=== PATIENT | male | born 1985 | race Caucasian/White ===

== ENCOUNTER 2025-05-22 09:06 | Emergency (ER) | payer OTHER, SELFPAY ==
[2025-05-22 09:23] VITALS: BP 125/84; PULSE 81; RESP 18; TEMP 36.2; O2SAT 97; BMI 26.4
--- NOTE | 2025-05-22 10:30 | CRLHL7_ITS ---
For Patients: As a result of the Century Cures Act, medical imaging exams and procedure reports are released immediately into your electronic medical record. You may view this report before your referring provider. If you have questions, please contact your health care provider. INDICATION: Headache, neck pain. TECHNIQUE: CTA head using intravenous contrast with bolus tracking, 3D angiographic rendering using maximum intensity projection (MIP) and images permanently archived. CTA neck using intravenous contrast with bolus tracking, 3D angiographic rendering using maximum intensity projection (MIP) and images permanently archived. FINDINGS: CTA head: There is normal opacification of the intracranial vasculature. There is no large vessel occlusion or significant intracranial stenosis. No aneurysm is identified. CTA neck: There is no significant carotid artery stenosis or dissection. There is no significant vertebral artery stenosis or dissection. IMPRESSION: Unremarkable head CTA. Unremarkable neck CTA. Please note that all CT scans at this facility use dose modulation, iterative reconstruction, and/or weight-based dosing when appropriate to reduce radiation dose to as low as reasonably achievable. Dictated by Luis Miguel Holm MD @ 05/22/2025 4:45:59 PM (Electronically Signed)
--- NOTE | 2025-05-22 10:30 | CRLHL7_ITS ---
For Patients: As a result of the Century Cures Act, medical imaging exams and procedure reports are released immediately into your electronic medical record. You may view this report before your referring provider. If you have questions, please contact your health care provider. INDICATION: Trauma with neck pain and headache COMPARISON: None. TECHNIQUE: CT of the cervical spine without contrast. FINDINGS: Alignment: Straightening of the cervical lordosis. Vertebra: No evident acute displaced fracture or traumatic malalignment. Cervical vertebral body height is grossly preserved. There are multilevel degenerative changes characterized by disc height loss, osteophytosis, facet hypertrophy, and end plate degenerative irregularity. There is osseous spinal canal stenosis most conspicuous at C5-6 where it is mild to moderate. There is osseous neural foraminal narrowing most conspicuous at the left C5-6 where it is qqbv-tj-gazicfkq. Paraspinal muscles: Unremarkable noncontrast CT appearance. Additional findings: There is a punctate calcified right-sided tonsillith. IMPRESSION: 1. No evident acute displaced fracture. 2. Vott-qz-llvsxtsv degenerative change of the cervical spine. Please note that all CT scans at this facility use dose modulation, iterative reconstruction, and/or weight-based dosing when appropriate to reduce radiation dose to as low as reasonably achievable. Dictated by Simeon Silva MD @ 05/22/2025 12:30:51 PM (Electronically Signed)
--- NOTE | 2025-05-22 10:30 | CRLHL7_ITS ---
For Patients: As a result of the Century Cures Act, medical imaging exams and procedure reports are released immediately into your electronic medical record. You may view this report before your referring provider. If you have questions, please contact your health care provider. INDICATION: Trauma with neck pain and headache COMPARISON: None. TECHNIQUE: CT of the head without contrast. FINDINGS: Brain, ventricles, and extra-axial spaces: No acute intracranial hemorrhage. Jaquez-white differentiation is grossly preserved. Size of the ventricles and sulci appears to be commensurate with age. Minimal intracranial vascular calcification. Bones: No acute osseous findings. There is a medium-sized polyp versus mucous retention cyst in the right maxillary sinus. There is scattered mild paranasal sinus mucosal thickening. Visualized mastoid air cells are clear. IMPRESSION: No acute intracranial noncontrast CT findings. Please note that all CT scans at this facility use dose modulation, iterative reconstruction, and/or weight-based dosing when appropriate to reduce radiation dose to as low as reasonably achievable. Dictated by Simeon Silva MD @ 05/22/2025 12:25:14 PM (Electronically Signed)
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
[2025-05-22] MEDS: MORPHINE 4 MG/ML INJ IVP (10:40)
[2025-05-22] MEDS: 0.9 % SODIUM CHLORIDE 500 ML 500 ML IV (10:41)
[2025-05-22 10:45] VITALS: O2SAT 96
--- OUTSIDE RECORDS SUMMARY | 2025-05-22 11:06 | XMS_ITS | Encounter Summary ---
Author Organization [facility] Address [address] [place] [address] Care Team Providers Care Shaft Sinker Name Role Phone Kaiden Grijalva Primary Care Provider [phone] Sindi Dubose NP Primary Care Provider [phone] Encounter Details Date Type Department Care Team (Latest Contact Info) Description 07/12/2008 Scanned Document EXTERNAL Scan, Clinical [address] [facility] [place] [address] Social History Tobacco Use Types Packs/Day Years Used Date Smoking Tobacco: Never Assessed Sex and Gender Information Value Date Recorded Sex Assigned at Not on file 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 Gender Identity Not on file Sexual Orientation Not on file documented as of this encounter Miscellaneous Notes * Op Note - Stu Clinical - 07/12/2008 12:00 AM CST TIE MACHINE OPERATOR AUTOMATIC documented in this encounter Plan of Treatment Not on file documented as of this encounter Visit Diagnoses Not on filedocumented in this encounter Care Teams Shaft Sinker Relationship Specialty Start Date End Date Kaiden Grijalva FNP [address] [place], [address] PCP - General Nurse Practitioner 11/29/18 02/26/25 Sindi Dubose NP [address] [facility] [address] [facility] [place] [address] PCP - General Nurse Practitioner 02/27/25 documented as of this encounter
--- OUTSIDE RECORDS SUMMARY | 2025-05-22 11:06 | XMS_ITS | Encounter Summary ---
Author Organization [facility] Address [address] [place], [address] Care Team Providers Care Black Top Spreader Machine Operator Name Role Phone Kaiden Grijalva MODE Primary Care Provider [phone] Sindi Dubose NP Primary Care Provider [phone] Encounter Details Date Type Department Care Team (Late st Contact Info) Description 07/13/2008 Historical Encounter [facility] Surgery [address] [place], [address] Maulik Mccurdy MD [address] [place] [address] [place] [phone] Social History Tobacco Use Types Packs/Day Years Used Date Smoking Tobacco: Never Assessed Sex and Gender Information Value Date Recorded Sex Assigned at Not on file 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 Received in formalin labeled [place], right inguinal hernia sac is a 2 .3 x 1.6 x 1.6 cm portion of membranofatty tissue. Cut sections are similar and free of distinct gross and/or palpable abnormality. TS1. tt/ lb/ied DIAGNOSIS A. RIGHT INGUINAL HERNIA SAC HERNIA SAC, EXCISED ELECTRONICALLY SIGNED BY: JORDAN KOLB M.D. (Signed in IC-Chart by Maulik Mccurdy MD on 2008-07-21 16:23:00) documented in this encounter Plan of Treatment Not on file documented as of this encounter Visit Diagnoses Not on filedocumented in this encounter Care Teams Black Top Spreader Machine Operator Relationship Specialty Start Date End Date Kaiden Grijalva FNP [address] [place], [address] PCP - General Nurse Practitioner 11/29/18 02/26/25 Sindi Dubose NP [address] [facility] [place] [address] PCP - General Nurse Practitioner 02/27/25 documented as of this encounter
--- OUTSIDE RECORDS SUMMARY | 2025-05-22 11:06 | XMS_ITS | Encounter Summary ---
Author Organization [facility] Address [address] [place] [address] Care Team Providers Care Retirement Plan Specialist Name Role Phone RudiKaiden Bj COELLO Primary Care Provider [phone] Sindi Dubose NP Primary Care Provider [phone] Encounter Details Date Type Department Care Team (Late st Contact Info) Description 12/13/2008 Historical Encounter [facility] [place] [address] [facility] 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 FINDINGS: There is no fracture or dislocation. The joint spaces are unremarkable. IMPRESSION: No acute process. Jorge Mooney MD TR: JAX Conf #: [id number] Dictation ID: [id number] cc: (Signed in IC-Chart by Jaylan Mooney MD on Dec 15 2008 3:47PM) (Reviewed in IC-Chart by VANESA Fernandez on 12/15/2008 3:54:20 PM) (Reviewed in IC-Chart by Parmjit Sumner MD on 12/15/2008 4:21:45 PM) documented in this encounter Plan of Treatment Not on file documented as of this encounter Visit Diagnoses Not on filedocumented in this encounter Care Teams Retirement Plan Specialist Relationship Specialty Start Date End Date Kaiden Grijalva FNP [address] [place] [phone] PCP - General Nurse Practitioner 11/29/18 02/26/25 Sindi Dubose NP [address] [facility] [place] [address] PCP - General Nurse Practitioner 02/27/25 documented as of this encounter
--- OUTSIDE RECORDS SUMMARY | 2025-05-22 11:06 | XMS_ITS | Encounter Summary ---
Author Organization [facility] Address [address] [place], [address] Care Team Providers Care Um Nurse Name Role Phone Kaiden Grijalva Bj COELLO Primary Care Provider [phone] Sindi Dubose NP Primary Care Provider [phone] Encounter Details Date Type Department Care Team (Late st Contact Info) Description 05/03/2008 Historical Encounter [facility] Surgery [address] [facility] [place] [address] Kyle Mccurdy MD [address] [place] [address] [place] [phone] Social History Tobacco Use Types Packs/Day Years Used Date Smoking Tobacco: Never Assessed Sex and Gender Information Value Date Recorded Sex Assigned at Not on file 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 He has no significant past medical or past surgical history. REVIEW OF SYSTEMS: Noncontributory. OBJECTIVE: General: He is a well-developed, well-nourished white male who is in no apparent distress. HEENT: Normocephalic. Atraumatic. Lungs: Clear. Heart: Regular rate and rhythm. Abdomen: Soft. exam: He has an easily demonstrable right inguinal hernia that feels like a direct hernia that is easily reducible. The left side is free of any hernias. ASSESSMENT: Right inguinal hernia. PLAN: Right inguinal hernia repair. Kyle Mccurdy MD TR: TORIBIO/TRICIA Conf #: [id number] Dictation ID: [id number] cc: (Signed in IC-Chart by Kyle Mccurdy MD on 2008-05-08 18:40:21) documented in this encounter Plan of Treatment Not on file documented as of this encounter Visit Diagnoses Not on filedocumented in this encounter Care Teams Um Nurse Relationship Specialty Start Date End Date Kaiden Grijalva FNP [address] [place] [address] PCP - General Nurse Practitioner 11/29/18 02/26/25 Sindi Dubose NP [address] [facility] [place] [address] PCP - General Nurse Practitioner 02/27/25 documented as of this encounter
--- OUTSIDE RECORDS SUMMARY | 2025-05-22 11:06 | XMS_ITS | Encounter Summary ---
Author Organization [facility] a [facility] Address [address] [place], [address] Care Team Providers Care Rn Dermatology Name Role Phone Kaiden Grijalva Bj COELLO Primary Care Provider [phone] Sindi Dubose NP Primary Care Provider [phone] Encounter Details Date Type Department Care Team (Late st Contact Info) Description 07/20/2008 Historical Encounter [facility] Surgery [address] [facility] [address] Kyle Mccurdy MD [address] [place] [address] [place] [phone] Social History Tobacco Use Types Packs/Day Years Used Date Smoking Tobacco: Never Assessed Sex and Gender Information Value Date Recorded Sex Assigned at Not on file 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 The patient is having a fair amount of pain and some swelling and bruising but otherwise is doing fine. OBJECTIVE: By physical exam, his wound looks great. There is no evidence of any recurrent hernia. No evidence of any infection. His left side is free of any hernias. Both testicles are well descended. He does have some ecchymosis around his scrotum too. ASSESSMENT: Status post right inguinal hernia repair. PLAN: See me back in four weeks for recheck. Kyle Mccurdy MD TR: TORIBIO/TRICIA Conf #: [id number] Dictation ID: [id number] cc: (Signed in IC-Chart by Kyle Mccurdy MD on 2008-07-21 16:15:02) documented in this encounter Plan of Treatment Not on file documented as of this encounter Visit Diagnoses Not on filedocumented in this encounter Care Teams Rn Dermatology Relationship Specialty Start Date End Date Kaiden Grijalva FNP [address] [place] [phone] PCP - General Nurse Practitioner 11/29/18 02/26/25 Sindi Dubose NP [address] [facility] [place] [address] PCP - General Nurse Practitioner 02/27/25 documented as of this encounter
--- OUTSIDE RECORDS SUMMARY | 2025-05-22 11:06 | XMS_ITS | Encounter Summary ---
Author Organization [facility] a [facility] Address [address] [place], [address] Care Team Providers Care Subscription Agent Name Role Phone Kaiden Grijalva MODE Primary Care Provider Sindi Dubose NP Primary Care Provider Encounter Details Date Type Department Care Team (Late st Contact Info) Description 07/13/2008 Historical Encounter [facility] [address] [facility] [address] Kyle Mccurdy MD [address] [place] [address] [place] [phone] Social History Tobacco Use Types Packs/Day Years Used Date Smoking Tobacco: Never Assessed Sex and Gender Information Value Date Recorded Sex Assigned at Not on file 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 PREOPERATIVE DIAGNOSIS: Right inguinal hernia. POSTOPERATIVE DIAGNOSIS: Same. OPERATIVE PROCEDURE: The patient was taken to the operating room and placed on the table in a comfortable supine position. After general endotracheal anesthesia was obtained, the right groin was prepped and draped in the usual sterile fashion. Next, I made a small right groin oblique incision and carried it down through the tissues all the way to the external oblique. That was incised through the external ring and I then cleaned off the undersurface of the external oblique and gained access around the spermatic cord. I then dissected the ilioinguinal nerve out of harm's way, after which I then dissected on the anterior medial aspect of the cord and found the indirect hernia sac. It was from the rest of the spermatic cord structures and I then suture ligated the sac all the way near the internal ring. I then amputated the sac above the ligature and allowed the rest of it to retract into the abdominal cavity. At this point, I then dilated up the internal ring and placed PHS medium mesh in the wound with the posterior onlay sitting beneath the inguinal floor on top of the retroperitoneum and the anterior onlay sitting anterior to the inguinal floor. The anterior onlay was sutured medial most to the pubic tubercle, laterally to the iliopubic tract, and medially to the transversus aponeurotic arch and posteriorly to the internal oblique. The mesh was actually split and sutured back to itself to the iliopubic tract as well. The wound was then injected with .25% Marcaine with epinephrine and then irrigated, after which I then reapproximated the external oblique with a running 3-0 Vicryl suture, Jose Elias's with a running 3-0 Vicryl, and the skin with a 4-0 Monocryl subcuticular suture. The wound was sealed with Dermabond. Estimated blood loss in the case was less than 10 cc. He went to recovery in stable condition. Kyle Mccurdy M.D. TR: ELMA Conf #: [id number] Dictation ID: [id number] cc: (Signed in -Chart by Kyle Mccurdy MD on 2008-07-21 16:23:04) documented in this encounter Plan of Treatment Not on file documented as of this encounter Visit Diagnoses Not on filedocumented in this encounter Care Teams Subscription Agent Relationship Specialty Start Date End Date Kaiden Grijalva FNP [address] [place], [phone] PCP - General Nurse Practitioner 11/29/18 02/26/25 Sindi Dubose NP [address] [facility] [place], [address] PCP - General Nurse Practitioner 02/27/25 documented as of this encounter
--- OUTSIDE RECORDS SUMMARY | 2025-05-22 11:06 | XMS_ITS | Encounter Summary ---
Author Organization [facility] a [facility] Address [address] [place], [address] Care Team Providers Care Inspector Scales Name Role Phone Kaiden Grijalva MODE Primary Care Provider [phone] Sindi Dubose NP Primary Care Provider [phone] Encounter Details Date Type Department Care Team (Late st Contact Info) Description 07/24/2008 Historical Encounter [facility] Surgery [address] [facility] [address] Kyle Mccurdy MD [address] [place] [address] [place] [phone] Social History Tobacco Use Types Packs/Day Years Used Date Smoking Tobacco: Never Assessed Sex and Gender Information Value Date Recorded Sex Assigned at Not on file 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 Gender Identity Not on file Sexual Orientation Not on file documented as of this encounter Miscellaneous Notes * Patient Forms - Kyle Mccurdy MD - 07/24/2008 10:05 AM CST - CERTIFICATE OF INCAPACITY - Arnoldo Dumont has been under my care from 07/12/2008 to 07/24/2008 and will be able to return on 07/24/2008 under the following conditions: - [ ] - No Restrictions - [X] - Light Duty - [ ] - Restricted Duty - Comments: - Provider: - Kyle Mccurdy MD - Date: 07/24/2008 - Entered By: ars documented in this encounter Plan of Treatment Not on file documented as of this encounter Visit Diagnoses Not on filedocumented in this encounter Care Teams Inspector Scales Relationship Specialty Start Date End Date Kaiden Grijalva, MODE [address] [place], [phone] PCP - General Nurse Practitioner 11/29/18 02/26/25 Sindi Dubose NP [address] [facility] [place], [address] PCP - General Nurse Practitioner 02/27/25 documented as of this encounter
--- OUTSIDE RECORDS SUMMARY | 2025-05-22 11:07 | XMS_ITS | Encounter Summary ---
Author Organization [facility] Address [address] [place] [address] Care Team Providers Care Vp Care Management Name Role Phone Kaiden Grijalva Primary Care Provider [phone] Sindi Dubose NP Primary Care Provider [phone] Encounter Details Date Type Department Care Team (Latest Contact Info) Description 04/14/2012 Scanned Document EXTERNAL Stu Clinical [address] [facility] [place] [address] Social History Tobacco Use Types Packs/Day Years Used Date Smoking Tobacco: Never Alcohol Use Standard Drinks/Week Comments Not Asked 0 (1 standard drink = 0.6 oz pur e alcohol) Sex and Gender Information Value Date Recorded Sex Assigned at Not on file 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 Gender Identity Not on file Sexual Orientation Not on file documented as of this encounter Progress Notes * Stu Clinical - 04/14/2012 2:01 PM CDT documented in this encounter Plan of Treatment Not on file documented as of this encounter Visit Diagnoses Not on filedocumented in this encounter Care Teams Vp Care Management Relationship Specialty Start Date End Date Kaiden Grijalva FNP [address] [place], [phone] PCP - General Nurse Practitioner 11/29/18 02/26/25 Sindi Dubose NP [address] [facility] [place] [address] PCP - General Nurse Practitioner 02/27/25 documented as of this encounter
--- OUTSIDE RECORDS SUMMARY | 2025-05-22 11:07 | XMS_ITS | Encounter Summary ---
Author Organization [facility] Address [address] [place] [address] Care Team Providers Care Web Developer Programmer Name Role Phone Kaiden Grijalva Primary Care Provider [phone] Sindi Dubose NP Primary Care Provider [phone] Encounter Details Date Type Department Care Team (Late st Contact Info) Description 04/11/2008 Historical Encounter HISTORICAL Provider, MD Jose [address] [facility] [place] [address] Social History Tobacco Use Types Packs/Day Years Used Date Smoking Tobacco: Never Assessed Sex and Gender Information Value Date Recorded Sex Assigned at Not on file 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
--- OUTSIDE RECORDS SUMMARY | 2025-05-22 11:07 | XMS_ITS | Encounter Summary ---
Author Organization [facility] Address [address] [place] [address], [place] [address] Care Team Providers Care Crown Perforator Operator Name Role Phone Kaiden Grijalva Bj COELLO Primary Care Provider [phone] Sindi Dubose NP Primary Care Provider [phone] Encounter Details Date Type Department Care Team (Late st Contact Info) Description 01/15/2006 Historical Encounter [facility] Surgery [address] [place] [address], [place] [address] Kyle Mccurdy MD [address] [place] [address] [place] [phone] Social History Tobacco Use Types Packs/Day Years Used Date Smoking Tobacco: Never Assessed Sex and Gender Information Value Date Recorded Sex Assigned at Not on file 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 Dumont is a healthy 20 year old white male who has a right inguinal hernia that needs repairing. REVIEW OF SYSTEMS: Negative. PAST HISTORY: SURGERY: Negative. MEDICAL: Negative. ALLERGIES: None. SOCIAL HISTORY: He drinks alcohol occasionally. PHYSICAL EXAMINATION: GENERAL: He is a well-developed, well-nourished, white male who looks his stated age and is healthy appearing. HEENT: Normocephalic, atraumatic. NECK: Supple without adenopathy. LUNGS: Clear to auscultation. HEART: Regular rate and rhythm. ABDOMEN: Soft and benign and nontender. : He has an easily demonstrable right inguinal hernia that is easily reducible. Left side is free of any hernias. Testicles are well-descended on both sides. EXT: No clubbing, cyanosis, or edema. IMPRESSION: Right inguinal hernia. PLAN: Right inguinal hernia repair. Kyle Mccurdy M.D./at documented in this encounter Plan of Treatment Not on file documented as of this encounter Visit Diagnoses Not on filedocumented in this encounter Care Teams Crown Perforator Operator Relationship Specialty Start Date End Date Kaiden Grijalva FNP [address] [place] [address] PCP - General Nurse Practitioner 11/29/18 02/26/25 Sindi Dubose NP [address] [facility] [place] [address] PCP - General Nurse Practitioner 02/27/25 documented as of this encounter
--- OUTSIDE RECORDS SUMMARY | 2025-05-22 11:07 | XMS_ITS | Encounter Summary ---
Author Organization [facility] Address [address] [place] [address] Care Team Providers Care Food Services Director Name Role Phone Kaiden Grijalva ON AIR ANNOUNCER Primary Care Provider [phone] Sindi Dubose NP Primary Care Provider [phone] Encounter Details Date Type Department Care Team (Late st Contact Info) Description 01/01/2006 Historical Encounter [facility] [address] [facility] [place] [address] Parmjit Sumner MD [address] [facility] [place] [phone] Social History Tobacco Use Types Packs/Day Years Used Date Smoking Tobacco: Never Assessed Sex and Gender Information Value Date Recorded Sex Assigned at Not on file 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 It started in 1999 after picking up a heavy object. Now he has a knot there that is intermittent. It recently has been bothering him a lot more especially if he tries to do any lifting. OBJECTIVE: VITAL SIGNS: Temperature is 97.8. Pulse is 64. Blood pressure is 130/80. LOWER EXTREMITIES: Examination of his right inguinal area shows that there are no testicular masses, no scrotal masses but his inguinal ring seems enlarged. When he coughs or strains there is a definite bulge. ASSESSMENT: Right inguinal hernia. PLAN: We are going to refer to Surgery for definitive care. Parmjit Sumner MD TR: DANUTA Conf #: [id number] Dictation ID: [id number] cc: (Signed in IC-Chart by Parmjit Sunmer MD on 2006-01-02 07:47:27) documented in this encounter Plan of Treatment Not on file documented as of this encounter Visit Diagnoses Not on filedocumented in this encounter Care Teams Food Services Director Relationship Specialty Start Date End Date Kaiden Grijalva FNP [address] [place] [address] PCP - General Nurse Practitioner 11/29/18 02/26/25 Sindi Dubose NP [address] [facility] [place] [address] PCP - General Nurse Practitioner 02/27/25 documented as of this encounter
--- OUTSIDE RECORDS SUMMARY | 2025-05-22 11:07 | XMS_ITS | Clinical Summary ---
Author Organization [facility] Address [address] [place] [address] Care Team Providers Care Administration Manager Name Role Phone Sindi Dubose NP Primary Care Provider [phone] Allergies No known active allergies Medications dicyclomine (BENTYL) 20 MG tablet Take 1 tablet (20 mg total) by mouth 3 (three) times daily as needed (abdominal cramping). 20 tablet 11/05/2018 Active testosterone cypionate (DEPOTESTOTERONE CYPIONATE) 200 MG/ML injection 1 mL 08/15/2022 Act amadeo Active Problems Problem Noted Date Diagnosed Date Weakness of both lower extremities 03/23/2018 Tonsillitis 06/11/2017 Acute bilateral low back pain without sciatica 1 Pain of right forearm 08/21/2016 TED (obstructive sleep apnea) 08/15/2014 Sinusitis Encounters Date Type Department Care Team Description 02/27/2025 9:52 AM CDT - 02/27/2025 10:27 AM CDT Emergency [facility] Emergency Services [address] [facility] [address], [phone] Mona Mock NP Wells, Maria, FNP Foreign body/splinter, skin (Primary Dx) Discharge Disposition: 01. Home 02/27/2025 Travel from Last 3 Months Family History Medical History Relation Comments Arthritis Maternal Grandfather Arthritis Maternal Grandmother Diabetes Maternal Uncle Early Maternal Uncle Arthritis Paternal Grandfather Arthritis Paternal Grandmother Relation Status Comments Father Alive Maternal Grandfather Maternal Grandmother Maternal Uncle Mother Alive Paternal Grandfather Paternal Grandmother Social History Tobacco Use Types Packs/Day Years Used Date Smoking Tobacco: Never Smokeless Tobacco: Current Snuff Tobacco Cessation:Ready to Q uit: Not Asked; Counseling Given: Not Answered Alcohol Use Standard Drinks/Week Comments Yes 0 (1 standard drink = 0.6 oz pur e alcohol) occasionally Sex and Gender Information Value Date Recorded Sex Assigned at Not on file 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 Sex Male 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 Gender Identity Not on file Sexual Orientation Not on file Last Filed Vital Signs Vital Sign Reading Time Taken Comments Blood Pressure 137/90 02/27/2025 9:47 AM CDT Pulse 99 02/27/2025 9:47 AM CDT Temperature 36.7 C (98 F) 02/27/2025 9:47 AM CDT Respiratory Rate 20 02/27/2025 9:47 AM CDT Oxygen Saturation 95% 02/27/2025 9:47 AM CDT Inhaled Oxygen Concentration - - Weight 88.5 kg (195 lb) 02/27/2025 9:47 AM CDT Height 182.9 cm (6') 02/27/2025 9:47 AM CDT Body Mass Index 26.45 02/27/2025 9:47 AM CDT Plan of Treatment Health Maintenance Due Date Last Done Comments ADULT TETANUS VACCINE (1) 1995 INFLUENZA VACCINE 03/31/2025 Meningococcal ACWY Aged Out No longer eligible based on patient's age to complete this topic Meningococcal B Aged Out No longer el igible based on patient's age to complete this topic Pneumococcal Vaccine Aged Out No long er eligible based on patient's age to complete this topic Insurance [place] [employer] [place] [id number] * Guarantor: ANDRES [employer] Account Type Relation to Patient Date of Phone Billing Address Workers Comp Employer [address] [place] [address] [facility] [employer] * Guarantor: ELMIRA [employer] PAYABLE Account Type Relation to Patient Date of Phone Billing Address Occ Med Employer [address] [employer] [address] [address] [place] [address] Care Teams Administration Manager Relationship Specialty Start Date End Date Sindi Dubose NP [address] [place] [address] PCP - General Nurse Practitioner 02/27/25
--- OUTSIDE RECORDS SUMMARY | 2025-05-22 11:07 | XMS_ITS | Encounter Summary ---
Author Organization [facility] a [facility] Address [address] [place] [address] Care Team Providers Care Plant Operator Name Role Phone Kaiden Grijalva MODE Primary Care Provider [phone] Sindi Dubose NP Primary Care Provider Encounter Details Date Type Department Care Team (Late st Contact Info) Description 09/05/2005 Historical Encounter [facility] [address] 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 SUBJECTIVE The patient comes in for suture removal. The wound looks great. Sutures are removed without difficulty. No sign of infection. ASSESSMENT 1. Laceration, now completely healed. PLAN 1. Follow up p.r.n. /Parmjit Sumner M.D. /liss (Signed in IC-Chart by Parmjit Sumner MD on 2005-09-08 07:09:23) documented in this encounter Plan of Treatment Not on file documented as of this encounter Visit Diagnoses Not on filedocumented in this encounter Care Teams Plant Operator Relationship Specialty Start Date End Date Kaiden Grijalva FNP [address] [place], [phone] PCP - General Nurse Practitioner 11/29/18 02/26/25 Sindi Dubose NP [address] [facility] [place], [address] PCP - General Nurse Practitioner 02/27/25 documented as of this encounter
--- OUTSIDE RECORDS SUMMARY | 2025-05-22 11:07 | XMS_ITS | Patient Health Record ---
Author Organization [facility] Address [address] [facility] [place], [address] Care Team Providers Care Vendor Management Associate Name Role Phone AMAN CISCO Primary Care Provider VERONA OWUSU Unavailable [phone] Genoveva Reed Unavailable [phone] Allergies No Known Allergies Results Component Value Reference Range Notes CBC Reviewed date:10/27/2024 04:13:28 PM Interpretation: Performing Lab: Notes/Report: Reference Lab COMPLETE BLOOD COUNT WBC 6.2 4.5 - 11.0 K/uL RBC 5.58 4.69 - 6.13 M/uL HEMOGLOBIN 18.4 13.5 - 18.1 g/dL HEMATOCRIT 53.5 43.5 - 53.7 % MCV 96 80 - 102 fL MCH 32.9 22.5 - 34.5 pg MCHC 34 31 - 37 g/dL RDW 12.6 11.6 - 14.8 % PLATELETS 252 142 - 424 K/uL MPV 7.9 7.0 - 11.5 fL %LYMPH 31 20 - 65 % %MONO 11 2 - 15 % %NEUT 53 30 - 75 % %EOS 4 0 - 5 % %BASO 1 0 - 3 % #LYMPH 1.9 1.2 - 3.4 K/uL #MONO 0.7 0.1 - 0.6 K/uL #NEUT 3.3 1.4 - 9.8 K/uL #EOS 0.3 0.0 - 0.3 K/uL #BASO 0.1 0.0 - 0.1 K/uL MANUAL DIFF NOT INDICATED RBC MORPH NOT INDICATED BASIC METABOLIC PROFILE Reviewed date:10/27/2024 04:13:41 PM Interpretation: Performing Lab: Notes/Report: Reference Lab BASIC METABOLI C PANEL SODIUM 137 136 - 145 mEq/L POTASSIUM 4.7 3.5 - 5.1 mEq/L CHLORIDE 101 98 - 107 mEq/L CO2 31 21 - 32 mEq/L GLUCOSE 104 70 - 110 mg/dL CALCIUM 9.0 8.5 - 10.1 mg/dL ANION GAP 5 5 - 15 BUN 22 7 - 18 mg/dL CREATININE 1.0 0.6 - 1.3 mg/dL BUN/CREAT 22 6 - 25 OSMOLALITY 297 285 - 295 mOsm/K AGE 40 NON-AA GFR 88 AFR AMER GFR 106 Units = ml/min/1.73m2 >90 Normal or Elevated GFR 60-89 Mildly Bepressed GFR 30-59 Moderately Depressed GFR 15-29 Severely Depressed GFR <15 Kidney Failure This MDRD GFR calculation is NOT valid for patients <20 years of age TESTOSTERONE TOTAL Reviewed date:10/28/2024 03:20:36 PM Interpretation:Low Performing Lab: Notes/Report: Testosterone 106 300-890 ng/dL [place] [employer] [address] [place] [address] Reverberatory Furnace Supervisor: Bhartah Castrejon M.D. CLIA# [id number] UNLESS OTHERWISE INDICATED, ALL TESTING PERFORMED AT: [employer] [address] CLIA NUMBER [id number] MEDICAL DIRECTOR OF RETAIL OPERATIONS, BHARATH CASTREJON M.D. Reason For Referral Reason the [facility] Diagnosis 1 Hypogonadism in male (E29.1) Referral Organization [facility] Referring Provider First Name VERONA Referring Provider Last Name UMER Referring Provider Speciality Family Med icine Referred Provider Specialty Other Medica l Care General Notes Kaila Elliott 04:39:08 PM >Left a VM with [facility] at [phone] to give PT a call back at [phone] to schedule an appt for 6 weeks out. Referral Priority Routine Medications Medication SIG (Take, Route, Frequency, Duration) Notes Start Date End Date Status Naproxen 500 MG 1 tablet with food a s needed Orally Twice a day for joint pain; Duration: 30 day(s) 08/08/2022 Not-Taking Cyclobenzaprine HCl 10 MG 1 tablet Orall y every 8 hours only as needed for muscle spasms; Duration: 30 day(s) 08/15/2022 Not-Taking Testosterone Cypionate 200 MG/ML 1 mL Intramuscular every week; Duration: 30 days 08/15/2022 Active predniSONE 10 MG 1 tablet Orally twic e a day; Duration: 7 days 08/08/2022 Not-Taking Social History Tobacco Use: Social History Observation Description Date Details (start date - stop date) Never Smoker NA - NA Tobacco use other than smoking: Question Answer Notes Are you an other tobacco user? No Tobacco Control (Standard) Question Answer Notes Tobacco use: Nonsmoker AUDIT-C (Standard) Question Answer Notes Did you have a drink containing alcohol in the p ast year? No Points 0 Interpretation Negative Problems Problem Type SNOMED Code ICD Code Onset Dates Problem Status W/U Status Risk Notes Problem Anxiety (06151695) Anxiety (F41.9) Active confirmed Problem Male hypogonadism (04796626) Hypogonadism in male (E29.1) Active confirmed Problem Ageusia (44982016) Ageusia (R43.2) Active confirmed Vital Signs Heart Rate 90 /min 10/25/2024 Temperature 98.2 degrees Fahrenheit 10/25/2024 Oximetry 94 % 10/25/2024 Blood pressure diastolic 80 mm Hg 10/25/2024 Height 72 in 10/25/2024 Blood pressure systolic 118 mm Hg 10/25/2024 Weight 197.2 lbs 10/25/2024 BMI 26.74 kg/m2 10/25/2024 Encounters Encounter Location Date Provider Diagnosis [facility] [address] [place] [address] 10/25/2024 VERONA OWUSU Hypogonadism in male E29.1 [facility] [address] [place] [address] 10/24/2024 VERONA OWUSU Hypogonadism in male E29.1 [facility] [address] [place] [address] 04/28/2025 VERONA OWUSU [facility] [address] [place] [address] 05/05/2025 Genoveva Reed Hypogonadism in male E29.1 Assessments Encounter Date Diagnosis (ICD Code) Assessment Notes Treatment Notes Treatment Clinical Notes Section Notes 10/24/2024 Hypogonadism in male (ICD-10 - E29.1) 10/25/2024 Hypogonadism in male (ICD-10 - E29.1) RTC 6 months Will call pending results 05/05/2025 Hypogonadism in male (ICD-10 - E29.1) Plan Of Treatment No Information Medications Administered Medication Instructions Date of Administration Dosage Notes Ketorolac Toradol 60mg 2ml 06/03/2017 2 mL Patient tolerate d well. Ketorolac Toradol 60mg 2ml 09/03/2022 60 mg LOT # [id number] Tolerated well Medical (General) History Surgical History Surgery Date(Month/Year)
--- OUTSIDE RECORDS SUMMARY | 2025-05-22 11:07 | XMS_ITS | Encounter Summary ---
Author Organization [facility] Address [address], [address] Care Team Providers Care Editor Farm Journal Name Role Phone Kaiden Grijalva HIGH FREQUENCY MILL OPERATOR Primary Care Provider Sindi Dubose NP Primary Care Provider Encounter Details Date Type Department Care Team (Late st Contact Info) Description 08/18/2005 Historical Encounter [facility] [address] [facility] [place] [address] Parmjit Sumner MD [address] [facility] [place] [phone] Social History Tobacco Use Types Packs/Day Years Used Date Smoking Tobacco: Never Assessed Sex and Gender Information Value Date Recorded Sex Assigned at Not on file 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 SUBJECTIVE The patient hit his right foot with an axe suffering a 3 cm laceration across the dorsum of the foot. OBJECTIVE VITAL SIGNS: Temperature is 98.2. Pulse is 72. Blood pressure is 120/70. LOWER EXTREMITIES: The right foot shows a 3 cm laceration as described above. Range of motion of the toes and dorsiflexion of the toes are intact. Capillary refill and sensation of the toes are intact. LABORATORY AND X-RAY DATA X-ray of the right foot shows no bony fracture. REPAIR NOTE The area was prepped with Betadine. Local anesthesia with 1% Lidocaine was used without Epinephrine. We cleaned the area well and probed it. There was evidence of the tendons but no tendon laceration seen. The wound was then approximated with three sutures of 4-0 Ethilon. He tolerated it very well. ASSESSMENT 3 cm laceration of the foot, now repaired. PLAN 1. Local wound care instructions given. 2. Follow up in two weeks for suture removal. 3. Augmentin 875 b.i.d. for four days. 4. Lortab 5 one to two q.4h. p.r.n. pain. /Parmjit Sumner M.D. /liss (Signed in IC-Chart by Parmjit Sumner MD on 2005-08-18 11:26:58) documented in this encounter Plan of Treatment Not on file documented as of this encounter Visit Diagnoses Not on filedocumented in this encounter Care Teams Editor Farm Journal Relationship Specialty Start Date End Date Kaiden Grijalva, MODE [address] [place] [phone] PCP - General Nurse Practitioner 11/29/18 02/26/25 Sindi Dubose NP [address] [facility] [place] [address] PCP - General Nurse Practitioner 02/27/25 documented as of this encounter
--- OUTSIDE RECORDS SUMMARY | 2025-05-22 11:07 | XMS_ITS | Encounter Summary ---
Author Organization [facility] Address [address] [place] [address] Care Team Providers Care Reimbursement Representative Name Role Phone Kaiden Grijalva COLLECTION ANALYST Primary Care Provider [phone] Sindi Dubose NP Primary Care Provider Encounter Details Date Type Department Care Team (Late st Contact Info) Description 10/08/[address] [facility] [address] [facility] [place] [address] Parmijt Sumner MD [address] [facility] [place] 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 There is a fluctuant, reddened, raised area. We recommended incision and drainage of this. Risk of procedure including bleeding, infection, scarring and damage to underlying structures explained to the patient. Local anesthesia with 1% Lidocaine after the area was prepped with Betadine. An incision was made and the core was removed. ASSESSMENT: Abscess, right hand, now drained. PLAN: 1. Local wound care instructions given. 2. Omnicef 300 mg b.i.d. x5 days. 3. Warm soaks twice a day. 4. Follow up if it does not gradually resolved. Parmjit Sumner MD TR: DANUTA Conf #: [id number] Dictation ID: [id number] cc: (Signed in IC-Chart by Parmjit Sumner MD on 2005-10-09 07:08:54) documented in this encounter Plan of Treatment Not on file documented as of this encounter Visit Diagnoses Not on filedocumented in this encounter Care Teams Reimbursement Representative Relationship Specialty Start Date End Date Kaiden Grijalva FNP [address] [place] [phone] PCP - General Nurse Practitioner 11/29/18 02/26/25 Sindi Dubose NP [address] [facility] [place] [address] PCP - General Nurse Practitioner 02/27/25 documented as of this encounter
--- OUTSIDE RECORDS SUMMARY | 2025-05-22 11:07 | XMS_ITS | Encounter Summary ---
Author Organization [facility] Address [address] [place] [address] Care Team Providers Care Booster Plant Operator Name Role Phone Kaiden Grijalva TIPPING MACHINE OPERATOR Primary Care Provider Sindi Dubose NP Primary Care Provider [phone] Encounter Details Date Type Department Care Team (Late st Contact Info) Description 12/30/2006 Historical Encounter [facility] [address] [facility] [place] [address] Parmjit Sumner MD [address] [facility] [place] [phone] Social History Tobacco Use Types Packs/Day Years Used Date Smoking Tobacco: Never Assessed Sex and Gender Information Value Date Recorded Sex Assigned at Not on file 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 Six years ago we evaluated this and felt like it was bursitis. He cannot remember any reinjury that he has had to his shoulder. It started about three weeks ago without any overuse or injury. He has taken some Tylenol but it did not do much. He is on currently no medication. OBJECTIVE: VITAL SIGNS: Temperature is 97.9. Pulse is 68. Blood pressure is 128/80. UPPER EXTREMITIES: Left shoulder has excellent range of motion but there is a popping sensation at the AC joint. His right shoulder has no popping sensation, and normal range of motion. Left arm has normal partridge farmer and normal radial pulse. ASSESSMENT: Bursitis of the shoulder, probably due to hold AC ligament injury. PLAN: 1. Celebrex 200 twice a day for a week. 2. Use heat with a heating pad 30 minutes twice a day. 3. Follow up p.r.n. Parmjit Sumner MD TR: DANUTA Conf #: [id number] Dictation ID: [id number] cc: (Signed in IC-Chart by Parmjit Sumner MD on 2006-12-30 14:53:56) documented in this encounter Plan of Treatment Not on file documented as of this encounter Visit Diagnoses Not on filedocumented in this encounter Care Teams Booster Plant Operator Relationship Specialty Start Date End Date Kaiden Grijalva FNP [address] [place] [phone] PCP - General Nurse Practitioner 11/29/18 02/26/25 Sindi Dubose NP [address] [facility] [place] [address] PCP - General Nurse Practitioner 02/27/25 documented as of this encounter
--- OUTSIDE RECORDS SUMMARY | 2025-05-22 11:07 | XMS_ITS | Encounter Summary ---
Author Organization [facility] Address [address] [place], [address] Care Team Providers Care Global Director Air And Climate Change Name Role Phone Kaiden Grijalva PLATE SETTER Primary Care Provider Sindi Dubose NP Primary Care Provider [phone] Encounter Details Date Type Department Care Team (Late st Contact Info) Description 01/19/2006 Historical Encounter [facility] Surgery [address] [facility] [address] Kyle Mccurdy MD [address] [place] [address] [place] [phone] Social History Tobacco Use Types Packs/Day Years Used Date Smoking Tobacco: Never Assessed Sex and Gender Information Value Date Recorded Sex Assigned at Not on file 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 He has known he has had it for probably a couple years, but it is starting to bother him and he would like to have it repaired. It is not causing any obstructive type symptoms at all. He has no past medical or surgical history. OBJECTIVE: By physical exam, generally, he is a well-developed, well-nourished white male in no apparent distress. HEENT - Normocephalic, atraumatic. Lungs clear. Abdomen soft. exam, he has a small right inguinal hernia that does not prolapse through the external ring into the scrotum at all. Left side is free of any hernias. He has bilateral descended testicles. ASSESSMENT: Right inguinal hernia. PLAN: Plans for right inguinal hernia repair. Kyle Mccurdy MD TR: HEAVEN Conf #: [id number] Dictation ID: [id number] cc: documented in this encounter Plan of Treatment Not on file documented as of this encounter Visit Diagnoses Not on filedocumented in this encounter Care Teams Global Director Air And Climate Change Relationship Specialty Start Date End Date Kaiden Grijalva FNP [address] [place] [address] PCP - General Nurse Practitioner 11/29/18 02/26/25 Sindi Dubose NP [address] [facility] [place] [address] PCP - General Nurse Practitioner 02/27/25 documented as of this encounter
--- OUTSIDE RECORDS SUMMARY | 2025-05-22 11:07 | XMS_ITS | Encounter Summary ---
Author Organization [facility] Address [address] [place] [address] Care Team Providers Care University Intern Name Role Phone Kaiden Grijalva MAILROOM MANAGER Primary Care Provider [phone] Sindi Dubose NP Primary Care Provider Encounter Details Date Type Department Care Team (Late st Contact Info) Description 08/12/[address] 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 MD: Parmjit Sumner M.D. - [place] [facility] PROCEDURE: RIGHT FOOT HISTORY: Open wound of foot, cut on top of foot RIGHT FOOT - THREE VIEWS: There is no evidence of fracture or foreign body. No abnormalities are otherwise seen. IMPRESSION: Normal. Zarina Retana M.D./deacon Dictation Date: 08/14/2005 Electrical Systems Engineer Date: 08/14/2005 Electrical Systems Engineer Time: 7:34 P (Signed in IC-Chart by Shine Retana MD on Aug 15 2005 10:53AM) (Signed in IC-Chart by Parmjit Sumner MD on Aug 15 2005 10:53AM) documented in this encounter Plan of Treatment Not on file documented as of this encounter Visit Diagnoses Not on filedocumented in this encounter Care Teams University Intern Relationship Specialty Start Date End Date Kaiden Grijalva FNP [address] [place] [phone] PCP - General Nurse Practitioner 11/29/18 02/26/25 Sindi Dubose NP [address] [facility] [place] [address] PCP - General Nurse Practitioner 02/27/25 documented as of this encounter
--- OUTSIDE RECORDS SUMMARY | 2025-05-22 11:07 | XMS_ITS | Encounter Summary ---
Author Organization [facility] Address [address] [place], [address] Care Team Providers Care Talent Agent Name Role Phone Kaiden Grijalva Bj COELLO Primary Care Provider Sindi Dubose NP Primary Care Provider [phone] Encounter Details Date Type Department Care Team (Late st Contact Info) Description 05/03/2008 Historical Encounter [facility] [address] [facility] [address] Kyle Mccurdy MD [address] [place] [address] [place] [phone] Social History Tobacco Use Types Packs/Day Years Used Date Smoking Tobacco: Never Assessed Sex and Gender Information Value Date Recorded Sex Assigned at Not on file 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 Actually, a little over two years ago, I scheduled him for a right inguinal hernia repair. The patient did not have it done then but now he has insurance and wants to go ahead and have it fixed. He states that it has not really gotten much bigger since that time, but it is bothering him a little and wants to have it repaired. He has got no significant past medical or past surgical history. OBJECTIVE: GENERAL: Well-developed, well-nourished white male who is in no apparent distress. HEENT: Normocephalic. Atraumatic. Lungs: Clear. Heart: Regular rate and rhythm. Abdomen: Soft and benign and nontender. exam: He has easily demonstrable right inguinal hernia that feels more like a direct hernia and does not prolapse through the external ring. Both of the testicles are well descended. His left side is free of any hernias. ASSESSMENT: Right inguinal hernia. PLAN: Right inguinal hernia repair. I have explained the risks, benefits, and possible complications of that procedure to the patient, which include bleeding, infection, recurrence of the hernia, wound complications, nerve damage, , stroke, LA, pulmonary embolism, deep venous thrombosis, testicular loss, testicular atrophy, recurrence of the hernia. He understands all of this and agrees to proceed. Kyle Mccurdy MD TR: SPG/LTTyler Conf #: [id number] Dictation ID: [id number] cc: (Signed in IC-Chart by Kyle Mccurdy MD on 2008-05-08 18:40:25) documented in this encounter Plan of Treatment Not on file documented as of this encounter Visit Diagnoses Not on filedocumented in this encounter Care Teams Talent Agent Relationship Specialty Start Date End Date Kaiden Grijalva FNP [address] [place] [address] PCP - General Nurse Practitioner 11/29/18 02/26/25 Sindi Dubose NP [address] [facility] [place], [address] PCP - General Nurse Practitioner 02/27/25 documented as of this encounter
--- OUTSIDE RECORDS SUMMARY | 2025-05-22 11:07 | XMS_ITS | Encounter Summary ---
Author Organization [facility] Address [address] [place], [address] Care Team Providers Care Airplane Patrol Pilot Name Role Phone Kaiden Grijalva LIQUEFACTION AND REGASIFICATION HELPER Primary Care Provider iSndi Dubose NP Primary Care Provider [phone] Encounter Details Date Type Department Care Team (Late st Contact Info) Description 05/02/2008 Historical Encounter [facility] Surgery [address] [facility] [address] Maulik Bourgeois MD [address] [place] [address] [place] [address] Social History Tobacco Use Types Packs/Day Years Used Date Smoking Tobacco: Never Assessed Sex and Gender Information Value Date Recorded Sex Assigned at Not on file 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 The heart and pulmonary vascularity are normal. The lungs are clear. The mediastinum and bony thorax are unremarkable. IMPRESSION Normal chest. Kulwinder Flannery MD TR: RSY/MJ Conf #: [id number] Dictation ID: [id number] cc: (Signed in IC-Chart by Noam Calzada MD on May 02 2008 3:33PM) (Reviewed in IC-Chart by Maulik Bourgeois MD on 05/02/2008 4:41:07 PM) documented in this encounter Plan of Treatment Not on file documented as of this encounter Visit Diagnoses Not on filedocumented in this encounter Care Teams Airplane Patrol Pilot Relationship Specialty Start Date End Date Kaiden Grijalva, MODE [address] [place], [address] PCP - General Nurse Practitioner 11/29/18 02/26/25 Sindi Dubose NP [address] [facility] [place], [address] PCP - General Nurse Practitioner 02/27/25 documented as of this encounter
--- OUTSIDE RECORDS SUMMARY | 2025-05-22 11:07 | XMS_ITS | Encounter Summary ---
Author Organization [facility] Address [address] [place] [address] Care Team Providers Care Community Life Director Name Role Phone Kaiden Grijalva Primary Care Provider [phone] Sindi Dubose NP Primary Care Provider Encounter Details Date Type Department Care Team (Late st Contact Info) Description 02/24/2005 Historical Encounter [facility] 215 [facility] [place] [address] Rudolph Lopez FNP 215 [facility] 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 Ede states he thought it was some kind of poison at first. It is very tender. He has been getting some drainage out of it. It is automatic bandsaw tender. It is actually starting to spread some. OBJECTIVE: Well-developed, well-nourished white male. No acute distress noted at this time. Temperature not taken. Pulse 68. Blood pressure 120/80. SKIN: Left wrist noted to have several lesions present, which are raised, red and slightly tender. I see no drainage at this time. ASSESSMENT: Cellulitis left wrist, questionable etiology. PLAN: 1. Open one of the pustules up and get some purulent material out and do a culture and sensitivity. 2. Put him on Bactroban, apply with Q-Tip up inside of nose once a day. 3. Bactrim DS one b.i.d. 4. Advised patient will call her with the results of the culture and any change to treatment. /MODE Henderson /devora (Signed in IC-Chart by VANESA Fernandez on 2005-02-24 10:33:00) documented in this encounter Plan of Treatment Not on file documented as of this encounter Visit Diagnoses Not on filedocumented in this encounter Care Teams Community Life Director Relationship Specialty Start Date End Date Kaiden Grijalva FNP [address] [place], [phone] PCP - General Nurse Practitioner 11/29/18 02/26/25 Sindi Dubose NP [address] [facility] [place], [address] PCP - General Nurse Practitioner 02/27/25 documented as of this encounter
--- OUTSIDE RECORDS SUMMARY | 2025-05-22 11:07 | XMS_ITS | Encounter Summary ---
Author Organization [facility] Address [address] [place] [address] Care Team Providers Care Tool Room Attendant Name Role Phone Rudi Kaiden Bj COELLO Primary Care Provider [phone] Sindi Dubose NP Primary Care Provider [phone] Encounter Details Date Type Department Care Team (Late st Contact Info) Description 04/13/[address] [facility] 215 [facility] [place] [address] Rudolph Lopez FNP 215 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 Apparently the patient was helping roll a trailer when a piece of sharp metal stuck in his boot lacerating his foot. He has had a tetanus shot within about the last five years. OBJECTIVE: General: Well-developed, well-nourished male. No acute distress noted at this time. Extremities: Left foot noted to have a mild laceration to the arch of the foot approximately 1 inch in length just down to the fatty tissue. He does have good range of motion. He does have sensation all digits. IMPRESSION: Laceration, left foot. PLAN: 1. Have patient sign informed consent. 2. Area cleansed with Betadine. 3. Anesthetized with 1% plain lidocaine. 4. Closed with two 4-0 nylon sutures. 5. Antibiotic cream and dry sterile dressing applied. 6. Advised patient to keep this clean and dry and keep antibiotic cream on it. 7. Return to clinic in seven to ten days for suture removal. Marquis Lopez NP TR: PHILL Conf #: [id number] Dictation ID: [id number] cc: (Signed in IC-Chart by VANESA Fernandez on 2008-04-13 14:13:11) documented in this encounter Plan of Treatment Not on file documented as of this encounter Visit Diagnoses Not on filedocumented in this encounter Care Teams Tool Room Attendant Relationship Specialty Start Date End Date Kaiden Grijalva FNP [address] [place], [address] PCP - General Nurse Practitioner 11/29/18 02/26/25 Sindi Dubose NP [address] [facility] [place] [address] PCP - General Nurse Practitioner 02/27/25 documented as of this encounter
--- OUTSIDE RECORDS SUMMARY | 2025-05-22 11:07 | XMS_ITS | Encounter Summary ---
Author Organization [facility] Address [address] [place] [address] Care Team Providers Care Turbine Subassembler Name Role Phone Kaiden Grijalva Primary Care Provider [phone] Sindi Dubose NP Primary Care Provider [phone] Encounter Details Date Type Department Care Team (Latest Contact Info) Description 02/01/2015 Scanned Document EXTERNAL Scan, Clinical [address] [facility] [place] [address] Social History Tobacco Use Types Packs/Day Years Used Date Smoking Tobacco: Former Smokeless Tobacco: Current Snuff Alcohol Use Standard Drinks/Week Comments Yes 0 (1 standard drink = 0.6 oz pur e alcohol) Sex and Gender Information Value Date Recorded Sex Assigned at Not on file Legal Sex Male 6:29 AM GATHERING MACHINE SETTER Gender Identity Not on file Sexual Orientation Not on file documented as of this encounter Plan of Treatment Not on file documented as of this encounter Visit Diagnoses Not on filedocumented in this encounter Care Teams Turbine Subassembler Relationship Specialty Start Date End Date Kaiden Grijalva FNP [address] [place], [phone] PCP - General Nurse Practitioner 11/29/18 02/26/25 Sindi Dubose NP [address] [facility] [place] [address] PCP - General Nurse Practitioner 02/27/25 documented as of this encounter
--- OUTSIDE RECORDS SUMMARY | 2025-05-22 11:07 | XMS_ITS | Encounter Summary ---
Author Organization [facility] Address [address] [place] [address] Care Team Providers Care Metal Tile Setter Name Role Phone Kaiden Grijalva Primary Care Provider [phone] Sindi Dubose NP Primary Care Provider [phone] Encounter Details Date Type Department Care Team (Late st Contact Info) Description 12/28/2006 Historical Encounter HISTORICAL Provider, MD Jose [address] [facility] [place] [address] Social History Tobacco Use Types Packs/Day Years Used Date Smoking Tobacco: Never Assessed Sex and Gender Information Value Date Recorded Sex Assigned at Not on file Legal Sex Male 6:29 AM CHAPTER RELATIONS ADMINISTRATOR Gender Identity Not on file Sexual Orientation Not on file documented as of this encounter Plan of Treatment Not on file documented as of this encounter Visit Diagnoses Not on filedocumented in this encounter Care Teams Metal Tile Setter Relationship Specialty Start Date End Date Kaiden Grijalva FNP [address] [place], [address] PCP - General Nurse Practitioner 11/29/18 02/26/25 Sindi Dubose NP [address] [facility] [place] [address] PCP - General Nurse Practitioner 02/27/25 documented as of this encounter
--- OUTSIDE RECORDS SUMMARY | 2025-05-22 11:07 | XMS_ITS | Encounter Summary ---
Author Organization [facility] Address [address] [place] [address] Care Team Providers Care Gun Profiler Name Role Phone Kaiden Grijalva Primary Care Provider [phone] Sindi Dubose NP Primary Care Provider [phone] Encounter Details Date Type Department Care Team (Latest Contact Info) Description 04/19/2012 Scanned Document EXTERNAL Stu Clinical [address] [facility] [address] Social History Tobacco Use Types Packs/Day Years Used Date Smoking Tobacco: Never Alcohol Use Standard Drinks/Week Comments Not Asked 0 (1 standard drink = 0.6 oz pur e alcohol) Sex and Gender Information Value Date Recorded Sex Assigned at Not on file 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 Gender Identity Not on file Sexual Orientation Not on file documented as of this encounter Progress Notes * Ayana Peraza - 04/19/2012 4:29 PM CDT documented in this encounter Plan of Treatment Not on file documented as of this encounter Visit Diagnoses Not on filedocumented in this encounter Care Teams Gun Profiler Relationship Specialty Start Date End Date Kaiden Grijalva FNP [address] [place], [phone] PCP - General Nurse Practitioner 11/29/18 02/26/25 Sindi Dubose NP [address] [facility] [place] [address] PCP - General Nurse Practitioner 02/27/25 documented as of this encounter
--- OUTSIDE RECORDS SUMMARY | 2025-05-22 11:07 | XMS_ITS | Encounter Summary ---
Author Organization [facility] Address [address] [place] [address] Care Team Providers Care Spinning Frame Cleaner Name Role Phone Kaiden Grijalva Primary Care Provider [phone] Sindi Dubose NP Primary Care Provider [phone] Encounter Details Date Type Department Care Team (Late st Contact Info) Description 12/28/2006 Historical Encounter HISTORICAL Provider, MD Jose [address] 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
--- OUTSIDE RECORDS SUMMARY | 2025-05-22 11:07 | XMS_ITS | Encounter Summary ---
Author Organization [facility] Address [address] [place] [address] Care Team Providers Care Strainer Tender Name Role Phone Kiaden Grijalva TENNIS RACKET REPAIRER Primary Care Provider Sindi Dubose NP Primary Care Provider [phone] Encounter Details Date Type Department Care Team (Late st Contact Info) Description 11/17/2005 Historical Encounter [facility] 215 [facility] [address] Parmjit Sumner MD 215 [facility] [place] [address] Social History Tobacco Use Types Packs/Day Years Used Date Smoking Tobacco: Never Assessed Sex and Gender Information Value Date Recorded Sex Assigned at Not on file 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 Symptoms started last night and became worse today. Cough has been productive. No fever present. OBJECTIVE: VITAL SIGNS: Temperature is 98.7. Pulse is 92. Blood pressure is 110/80. HEENT: Throat is red and irritated. TMs are leiva. NECK: Supple. LUNGS: Clear. ASSESSMENT: Sinusitis/bronchitis. PLAN: 1. Zithromax Z-Arturo. 2. Endal HD one to two teaspoons q.6h. p.r.n. cough, use only at night. Sedation precautions given. 3. Follow-up if symptoms do not improve. Parmjit Sumner MD TR: DANUTA Conf #: [id number] Dictation ID: [id number] cc: (Signed in IC-Chart by Parmjit Sumner MD on 2005-11-17 09:49:00) documented in this encounter Plan of Treatment Not on file documented as of this encounter Visit Diagnoses Not on filedocumented in this encounter Care Teams Strainer Tender Relationship Specialty Start Date End Date Kaiden Grijalva, MODE [address] [place] [address] PCP - General Nurse Practitioner 11/29/18 02/26/25 Sindi Dubose NP [address] [facility] [place] [address] PCP - General Nurse Practitioner 02/27/25 documented as of this encounter
--- OUTSIDE RECORDS SUMMARY | 2025-05-22 11:07 | XMS_ITS | Encounter Summary ---
Author Organization [facility] Address [address] [place], [address] Care Team Providers Care Auditing Specialist Name Role Phone Kaiden Grijalva ASSOCIATE SOFTWARE ENGINEER Primary Care Provider [phone] Sindi Dubose NP Primary Care Provider Encounter Details Date Type Department Care Team (Late st Contact Info) Description 03/27/2005 Historical Encounter [facility] [address] [place], [address] Crystal Maynard MD [address] [facility] 11 [facility] [phone] Social History Tobacco Use Types Packs/Day Years Used Date Smoking Tobacco: Never Assessed Sex and Gender Information Value Date Recorded Sex Assigned at Not on file 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 HISTORY OF PRESENT ILLNESS: The patient comes in today with complaints of sore throat that started on and he has had fever for two days and no cough. He has not had any stuffy nose, nausea, vomiting or diarrhea ALLERGIES: No known drug allergies. PHYSICAL EXAMINATION: Vital Signs: Weight is 183 pounds. Temperature is 99.0. Pulse is 72. Blood pressure is 96/60. General: The patient is a well-developed, well-nourished, white male who is alert, oriented and in no acute distress. HEENT: Normocephalic, atraumatic. Pupils are equal, round and reactive to light. Extraocular muscles are intact. Conjunctivae are clear without injection or icterus. Ears show no external lesions. Canals are patent. TMs are shiny and leiva. Nose is without erythema or discharge. Oropharynx is moist and pink with posterior pharyngeal erythema and exudates. Neck: Supple with tender anterior cervical adenopathy. No thyromegaly or masses. Lungs: Clear. Symmetric chest expansion without wheezes, rhonchi or rales. CV: Regular rate and rhythm without murmurs, gallops or rubs. There is no peripheral edema. Peripheral pulses are 2+ dorsalis pedis and radial. IMPRESSION: 1. Pharyngitis. PLAN: 1. We have put him on Ceftin 500 mg one p.o. b.i.d. for 10 days. 2. Viscus Lidocaine 15 cc swish, gargle and spit q.2h. p.r.n. sore throat. 3. Alternate Tylenol and Motrin for fever. 4. Follow up for any worsening signs or symptoms. 5. The patient voices understanding and agreement. /Crystal Maynard M.D. /liss (Signed in IC-Chart by Crystal Maynard MD on 2005-04-15 21:42:58) documented in this encounter Plan of Treatment Not on file documented as of this encounter Visit Diagnoses Not on filedocumented in this encounter Care Teams Auditing Specialist Relationship Specialty Start Date End Date Kaiden Grijalva FNP [address] [place], [address] PCP - General Nurse Practitioner 11/29/18 02/26/25 Sindi Dubose NP [address] [facility] [place] [address] PCP - General Nurse Practitioner 02/27/25 documented as of this encounter
--- OUTSIDE RECORDS SUMMARY | 2025-05-22 11:07 | XMS_ITS | Encounter Summary ---
Author Organization [facility] Address [address] [place] [address] Care Team Providers Care Health And Safety Coordinator Name Role Phone Kaiden Grijalva Bj COELLO Primary Care Provider [phone] Sindi Dubose NP Primary Care Provider [phone] Encounter Details Date Type Department Care Team (Late st Contact Info) Description 04/14/2008 Historical Encounter [facility] 215 [facility] [place] [address] Jacob Snowden DO 215 [facility] [place] [address] Social History Tobacco Use Types Packs/Day Years Used Date Smoking Tobacco: Never Assessed Sex and Gender Information Value Date Recorded Sex Assigned at Not on file 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 Office Visit DATE OF SERVICE: 04/11/2008 PATIENT NAME: SHERRI DUMONT : 1985 He was putting a part in a drum at work approximately one hour ago when he felt sudden pain in the right forearm, claims it hurts to supinate and also to extend the right wrist. No previous injuries. 132/90, pulse 78, respirations 18. I do not see any swelling. He does have a full range of motion and pronation, supination, flexion and extension. There is tenderness over the lateral epicondyle. ASSESSMENT AND PLAN: Strained muscle to the forearm. Ice three times before bed. Mobic 7.5 to 15, daily, #30 Darvocet. Wrote a note for boss for limited right hand over the next 5 days. Jacob Snowden DO TR: YOUSIF Conf #: [id number] Dictation ID: [id number] cc: (Signed in IC-Chart by Jacob Snowden DO on 2008-04-14 15:11:35) documented in this encounter Plan of Treatment Not on file documented as of this encounter Visit Diagnoses Not on filedocumented in this encounter Care Teams Health And Safety Coordinator Relationship Specialty Start Date End Date Kaiden Grijalva FNP [address] [place], [address] PCP - General Nurse Practitioner 11/29/18 02/26/25 Sindi Dubose NP [address] [facility]] [place], [address] PCP - General Nurse Practitioner 02/27/25 documented as of this encounter
--- OUTSIDE RECORDS SUMMARY | 2025-05-22 11:07 | XMS_ITS | Encounter Summary ---
Author Organization [facility] Address [address] [address] Care Team Providers Care Natural Foods Clerk Name Role Phone Kaiden Grijalva Primary Care Provider [phone] Sindi Dubose NP Primary Care Provider [phone] Encounter Details Date Type Department Care Team (Late st Contact Info) Description 12/28/2006 Historical Encounter HISTORICAL Provider, MD Jose [address] 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
--- OUTSIDE RECORDS SUMMARY | 2025-05-22 11:08 | XMS_ITS | Encounter Summary ---
Author Organization [facility] Address [address] [place] [address] Care Team Providers Care Senior Games Technician Name Role Phone Kaiden Grijalva Primary Care Provider Sindi Dubose NP Primary Care Provider Encounter Details Date Type Department Care Team (Late st Contact Info) Description 10/19/2004 Historical Encounter [facility] 215 [facility] [place] [address] Rudolhp Lopez FNP 215 [facility] [place] [address] Social History Tobacco Use Types Packs/Day Years Used Date Smoking Tobacco: Never Assessed Sex and Gender Information Value Date Recorded Sex Assigned at Not on file 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 He has had a temperature of 102 yesterday and 100 this morning. He is achy all over. This has been a pretty sudden onset. His sore throat is pretty bad. He has a little bit of drainage and a little bit of congestion but not real bad. OBJECTIVE: Well-developed, well-nourished white male. Mild to moderate distress noted at this time. Temperature 98.3. Pulse 76. Blood pressure 110/78. HEENT: TM's pearly leiva, a little bit of effusion. Eyes, negative. Nose, positive for a little bit of coryza. Throat, positive for erythemic, exudative tonsillar surfaces. NECK: Moderate size, mobile, slightly tender anterior cervical adenopathy. CHEST: Bilateral breath sounds are equal and clear. ASSESSMENT: Pharyngitis. PLAN: 1. Biaxin XL two p.o. daily with food for ten days. Take until completely gone. 2. Throw toothbrush away after 24 hours on antibiotics to keep from reinfecting throat and obtain new toothbrush. 3. If symptomology is not improving, call me back. 4. He is given a work excuse until tomorrow. Advised if the problem is still there tomorrow, we can extend his work excuse. 5. Return to clinic for routine health maintenance otherwise. /MODE [place] /devora documented in this encounter Plan of Treatment Not on file documented as of this encounter Visit Diagnoses Not on filedocumented in this encounter Care Teams Senior Games Technician Relationship Specialty Start Date End Date Kaiden Grijalva FNP [address] [place] [phone] PCP - General Nurse Practitioner 11/29/18 02/26/25 Sindi Dubose NP [address] [facility] [place] [address] PCP - General Nurse Practitioner 02/27/25 documented as of this encounter
--- OUTSIDE RECORDS SUMMARY | 2025-05-22 11:08 | XMS_ITS | Encounter Summary ---
Author Organization [facility] Address 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
--- OUTSIDE RECORDS SUMMARY | 2025-05-22 11:08 | XMS_ITS | Encounter Summary ---
Author Organization [facility] Address [address] [place] [address] Care Team Providers Care Club Room Attendant Name Role Phone Rudi Kaiden Bj COELLO Primary Care Provider Sindi Dubose NP Primary Care Provider [phone] Encounter Details Date Type Department Care Team (Late st Contact Info) Description 12/18/2008 Historical Encounter [facility] [address] [place] [address] Rudolph Lopez FNP [address] [facility] [place] [phone] Social History Tobacco Use Types Packs/Day Years Used Date Smoking Tobacco: Never Assessed Sex and Gender Information Value Date Recorded Sex Assigned at Not on file 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 He states that he was at work cutting some metal when some loose pieces fell off the top of the machine landing on his hand. OBJECTIVE: General: Well-developed, well-nourished male. Mild distress noted at this time. Vital Signs: Left hand noted to have superficial abrasion to the left index and fourth finger, fourth finger at the PIP joint, slight laceration, superficial, and just a slight abrasion to the index finger. He does have full range of motion to the digits. Sensation is intact. X-ray reveals no fracture. IMPRESSION: Crushing injury to left hand. PLAN: 1. Cleanse area with saline. Close laceration on fourth finger with Dermabond. 2. Antibiotic cream and Band-Aid applied to the index finger. 3. Keep area clean and dry. 4. Tetanus shot is up to date. 5. Return to clinic as problems arise. Marquis Lopez NP TR: PHILL Conf #: [id number] Dictation ID: [id number] cc: (Signed in IC-Chart by VANESA Fernandez on 2008-12-18 07:56:20) documented in this encounter Plan of Treatment Not on file documented as of this encounter Visit Diagnoses Not on filedocumented in this encounter Care Teams Club Room Attendant Relationship Specialty Start Date End Date Kaiden Grijalva FNP [address] [place], [id number] PCP - General Nurse Practitioner 11/29/18 02/26/25 Sindi Dubose NP [address] [facility] [place] [address] PCP - General Nurse Practitioner 02/27/25 documented as of this encounter
--- OUTSIDE RECORDS SUMMARY | 2025-05-22 11:08 | XMS_ITS | Encounter Summary ---
Author Organization [facility] Address [address] [place] [address] Care Team Providers Care Temperature Control Inspector Name Role Phone Rudi Kaiden Bj COELLO Primary Care Provider [phone] Sindi Dubose NP Primary Care Provider [phone] Encounter Details Date Type Department Care Team (Late st Contact Info) Description 09/17/2002 Policy Intern [facility] [place] [address] [place] [address] Rudolph Lopez FNP [address] [facility] [place] [phone] Social History Tobacco Use Types Packs/Day Years Used Date Smoking Tobacco: Never Assessed Sex and Gender Information Value Date Recorded Sex Assigned at Not on file 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 He has had the symptoms for about five days. He is coughing a lot, mostly at night. He took NyQuil and DayQuil. It helped some. He has had green sputum. He has been blowing more sputum than he has been coughing up. The back of his head hurts and the back of his throat hurts. He has not been clearing his throat a lot. He has not had a lot of sneezing. Problem #2: Questionable hernia. He states he coughed real hard one time. He felt something pop out down at his right inguinal area but it immediately went back in place. He has had some soreness in there since then. He has not had any problems with bowel or bladder. Ede denies any problems lifting, pulling or pushing. OBJECTIVE: Well-developed, well-nourished white male. Mild distress noted at this time. Temperature 100.4. Pulse 120. Blood pressure 110/78. HEENT: TM's are effused, nonerythemic. Eyes, positive for allergic shiners. Nose, positive for nasal mucosa erythema, sticky white sputum. Sinuses, tenderness over ethmoid. Throat, no erythema. NECK: Small, mobile, nontender, anterior cervical adenopathy. CHEST: Bilateral breath sounds are equal and clear. ABD: No obvious sign of herniation noted. There is some tenderness to the right inguinal area. ASSESSMENT: 1. Sinusitis. 2. Questionable inguinal hernia. PLAN: 1. Patient placed on Augmentin 1,000, one b.i.d. 2. Levall, one tsp q 4 - 6 hours p.r.n. cough and congestion. 3. Education to patient to observe the area to his inguinal area. If he notices something poking out that cannot be reduced, if he notices increased pain, he is to call me back immediately or go to the Emergency Room. 4. Return to clinic for routine health maintenance otherwise. 5. If symptomology does not improve with cough or congestion, return to clinic. MODE [place] /devora documented in this encounter Plan of Treatment Not on file documented as of this encounter Visit Diagnoses Not on filedocumented in this encounter Care Teams Temperature Control Inspector Relationship Specialty Start Date End Date Kaiden Grjialva GLASSWARE ENGRAVER [address] [place] [address] PCP - General Nurse Practitioner 11/29/18 02/26/25 Sindi Dubose NP [address] [facility] [place] [address] PCP - General Nurse Practitioner 02/27/25 documented as of this encounter
--- OUTSIDE RECORDS SUMMARY | 2025-05-22 11:08 | XMS_ITS | Encounter Summary ---
Author Organization [facility] Address [address] [place] [address] Care Team Providers Care Yarn Examiner Skeins Name Role Phone Kaiden Grijalva Bj PEREYRAP Primary Care Provider [phone] Sindi Dubose NP Primary Care Provider [phone] Encounter Details Date Type Department Care Team (Late st Contact Info) Description 11/03/2003 Letters (Transcribed) [facility] [address] [facility] [place] [address] Parmjit Sumner MD [address] [place] [phone] Social History Tobacco Use Types Packs/Day Years Used Date Smoking Tobacco: Never Assessed Sex and Gender Information Value Date Recorded Sex Assigned at Not on file 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 He has been on medication for this for several years. Even though this does not make him not responsible for his own actions it does make him have a tendency toward thinking out on his impulses without thinking through the situation thoroughly. Sincerely, Parmjit Sumner M.D. /liss documented in this encounter Plan of Treatment Not on file documented as of this encounter Visit Diagnoses Not on filedocumented in this encounter Care Teams Yarn Examiner Skeins Relationship Specialty Start Date End Date Kaiden Grijalva, MODE [address] [place], [phone] PCP - General Nurse Practitioner 11/29/18 02/26/25 Sindi Dubose NP [address] [facility] [place], [address] PCP - General Nurse Practitioner 02/27/25 documented as of this encounter
[2025-05-22 11:22] VITALS: PULSE 65; RESP 16; O2SAT 97
[2025-05-22 12:58] VITALS: BP 139/99; PULSE 67; RESP 16; O2SAT 99
== END 2025-05-22 13:13 | disposition home or self-care (01) ==
PROVIDERS: Emergency Provider Emergency Medicine
DX: S09.90XA Unspecified injury of head, initial encounter (principal); M54.2 Cervicalgia; W22.8XXA Striking against or struck by other objects, initial encounter; Y99.0 Civilian activity done for income or pay
CPT/HCPCS: 70450; 70496; 70498; 72125; 94761; 96374; 96375; 99284; J1885; J2270; J7030; Q9967